=== PATIENT | male | born 1945 | race Caucasian/White ===

== ENCOUNTER 2021-12-19 12:44 | Outpatient (CLI) | payer MEDICARE | END 2021-12-19 12:45 | disposition home or self-care (01) | LOC: CSHLAB 12:44 | PROVIDERS: ATTEND Specialist | DX: Z20.822 Contact with and (suspected) exposure to COVID-19 (principal) | CPT/HCPCS: 87811 ==

== ENCOUNTER 2021-12-20 08:07 | Outpatient (CLI) | payer MEDICARE | END 2021-12-20 08:08 | disposition home or self-care (01) | LOC: CSHSPEC 08:07 | PROVIDERS: ATTEND Specialist | DX: M54.12 Radiculopathy, cervical region (principal); M54.16 Radiculopathy, lumbar region; Z95.0 Presence of cardiac pacemaker; M47.812 Spondylosis without myelopathy or radiculopathy, cervical region; M47.816 Spondylosis without myelopathy or radiculopathy, lumbar region | CPT/HCPCS: 71045; 72141; 72148 ==

== ENCOUNTER 2022-01-18 14:38 | Emergency (ER) | payer MEDICARE ==
[2022-01-18 15:29] LABS: ALT (SGPT) Less than 6 U/L (8-55); AST (SGOT) 16 U/L (5-34); Albumin 4.2 g/dL (3.4-4.8); Alkaline Phosphatase 82 U/L (40-110); Anion Gap 12 mmol/L (10-20); BUN (Urea Nitrogen) 37 mg/dL (8.4-25.7); Bilirubin, Total 0.5 mg/dL (0.2-1.2); Calc. Creatinine Clearance 0 mL/min (70-130); Calcium 9.1 mg/dL (7.8-10.44); Carbon Dioxide 24 mmol/L (23-31); Chloride 108 mmol/L (98-107); Estimated GFR 42; Globulin 2.6 g/dL (2.4-3.5); Glucose 92 mg/dL (83-110); Potassium 4.4 mmol/L (3.5-5.1); Protein, Total 6.8 g/dL (5.8-8.1); Sodium 140 mmol/L (136-145)
[2022-01-18 15:33] LABS: #Monocytes 0.5 10x3/uL (0.0-1.1); #Neutrophils 3.4 10x3/uL (1.5-8.4); %Basophils 0.2 % (0.0-2.0); %Eosinophils 0.6 % (0.0-6.0); %Lymphocytes 22.4 % (18.0-47.0); %Monocytes 8.9 % (0.0-10.0); %Neutrophils 67.5 % (40.0-75.0); Hemoglobin 10.9 g/dL (13.5-17.5); Mean Corpuscular HGB CONC 33.2 g/dL (32.0-36.0); Mean Corpuscular Hemoglobin 29.9 pg (27.0-33.0); Mean Corpuscular Volume 90.1 fl (81.2-95.1); Mean Platelet Volume 9.6 fl (7.4-10.4); Platelet Count 190 10x3/uL (150-450); Red Blood Cell (RBC) Count 3.64 10x6/uL (4.32-5.72); White Blood Cell (WBC) Count 5.1 10x3/uL (3.5-10.5)
[2022-01-18 18:52] LABS: Troponin I 0.028 ng/mL (< 0.028)
== END 2022-01-18 19:29 | disposition home or self-care (01) ==
LOC: CSHERS 14:38
DX: R07.89 Other chest pain (principal); E78.5 Hyperlipidemia, unspecified; I10 Essential (primary) hypertension
CPT/HCPCS: 36415; 71045; 80053; 84484; 85025; 93005

== ENCOUNTER 2022-02-01 12:24 | Inpatient (IN) | payer MEDICARE ==
[2022-02-01] MEDS ORDERED: Acetaminophen 500 MG TAB ONE (13:04)
[2022-02-01 13:10] LABS: #Monocytes 0.5 10x3/uL (0.0-1.1); #Neutrophils 2.9 10x3/uL (1.5-8.4); %Lymphocytes 13.2 % (18.0-47.0); %Monocytes 12.2 % (0.0-10.0); %Neutrophils 74.3 % (40.0-75.0); Hemoglobin 10.7 g/dL (13.5-17.5); Mean Corpuscular HGB CONC 33.2 g/dL (32.0-36.0); Mean Corpuscular Hemoglobin 30.7 pg (27.0-33.0); Mean Corpuscular Volume 92.5 fl (81.2-95.1); Mean Platelet Volume 9.5 fl (7.4-10.4); Platelet Count 124 10x3/uL (150-450); RBC Distribution Width 12.9 % (11.5-14.5); Red Blood Cell (RBC) Count 3.48 10x6/uL (4.32-5.72); White Blood Cell (WBC) Count 3.9 10x3/uL (3.5-10.5)
[2022-02-01 13:11] LABS: ALT (SGPT) Less than 6 U/L (8-55); AST (SGOT) 17 U/L (5-34); Alkaline Phosphatase 79 U/L (40-110); Anion Gap 14 mmol/L (10-20); BUN (Urea Nitrogen) 32 mg/dL (8.4-25.7); Bilirubin, Total 0.4 mg/dL (0.2-1.2); Calc. Creatinine Clearance 0 mL/min (70-130); Calcium 8.4 mg/dL (7.8-10.44); Carbon Dioxide 22 mmol/L (23-31); Chloride 107 mmol/L (98-107); Estimated GFR 39; Globulin 2.5 g/dL (2.4-3.5); Glucose 102 mg/dL (83-110); Potassium 4.5 mmol/L (3.5-5.1); Protein, Total 6.5 g/dL (5.8-8.1); Sodium 138 mmol/L (136-145)
[2022-02-01 13:31] LABS: CKMB 0.9 ng/mL (0-6.6)
[2022-02-01 13:56] LABS: SARS-CoV-2 NAA Rapid Test DETECTED (NotDetected)
[2022-02-01] MEDS ORDERED: Aspirin Chewable 81 MG TAB ONE (14:22)
[2022-02-01] MEDS ORDERED: Acetaminophen 650 MG Suppository PR PRN (16:45)
[2022-02-01 17:07] LABS: Troponin I 0.103 ng/mL (< 0.028)
[2022-02-01 17:52] LABS: CKMB 0.9 ng/mL (0-6.6)
[2022-02-01] MEDS ORDERED: Ventolin HFA Inhaler 60 PUFF INHALER INH PRN (19:37)
[2022-02-01 20:33] VITALS: BMI 27.3
[2022-02-01 21:45] LABS: Troponin I 0.089 ng/mL (< 0.028)
[2022-02-01] MEDS ORDERED: Acetaminophen/Codeine 30-300mg Tablet PO SCH (22:30)
[2022-02-01] MEDS ORDERED: Carbidopa/Levodopa 25-100 mg Tablet PO SCH (22:30)
[2022-02-01] MEDS ORDERED: Apixaban 5 MG TAB PO SCH (22:30)
[2022-02-01] MEDS: Cepastat Lozenges 1 LOZ PO PRN (22:50)
[2022-02-02] MEDS ORDERED: diphenhydrAMINE 50 MG CAP PO SCH (00:30)
[2022-02-02] MEDS: Benzonatate 100 MG CAP PO PRN (04:29)
[2022-02-02] MEDS: Cepastat Lozenges 1 LOZ PO PRN ×2 (04:29→08:56)
[2022-02-02 06:06] LABS: Anion Gap 15 mmol/L (10-20); BUN (Urea Nitrogen) 27 mg/dL (8.4-25.7); Calc. Creatinine Clearance 46 mL/min (70-130); Calcium 8.4 mg/dL (7.8-10.44); Carbon Dioxide 23 mmol/L (23-31); Chloride 102 mmol/L (98-107); Estimated GFR 45; Glucose 100 mg/dL (83-110); Potassium 4.5 mmol/L (3.5-5.1); Sodium 135 mmol/L (136-145)
[2022-02-02 06:29] LABS: #Monocytes 0.4 10x3/uL (0.0-1.1); #Neutrophils 2.7 10x3/uL (1.5-8.4); %Lymphocytes 17.5 % (18.0-47.0); %Monocytes 10.1 % (0.0-10.0); %Neutrophils 72.1 % (40.0-75.0); Hemoglobin 11.1 g/dL (13.5-17.5); Mean Corpuscular HGB CONC 33.3 g/dL (32.0-36.0); Mean Corpuscular Hemoglobin 30.4 pg (27.0-33.0); Mean Corpuscular Volume 91.2 fl (81.2-95.1); Mean Platelet Volume 9.9 fl (7.4-10.4); Platelet Count 117 10x3/uL (150-450); RBC Distribution Width 12.7 % (11.5-14.5); Red Blood Cell (RBC) Count 3.65 10x6/uL (4.32-5.72); White Blood Cell (WBC) Count 3.8 10x3/uL (3.5-10.5)
[2022-02-02] MEDS: Acetaminophen 325 MG TAB PO PRN ×2 (07:24→12:52)
[2022-02-02] MEDS: Guaifenesin DM 100-10/5 ML UDCUP PO PRN ×3 (07:24→22:08)
[2022-02-02] MEDS ORDERED: Amlodipine 5 MG TAB PO SCH (11:00)
[2022-02-02] MEDS ORDERED: Rosuvastatin 10 MG TAB PO SCH (11:00)
[2022-02-02] MEDS ORDERED: REMDESIVIR 200 MG in Sodium Chloride 0.9% 250 ML 210 ML IV SCH (11:45)
[2022-02-02 12:16] LABS: ALT (SGPT) 9 U/L (8-55); AST (SGOT) 24 U/L (5-34); Albumin 3.8 g/dL (3.4-4.8); Alkaline Phosphatase 71 U/L (40-110); Bilirubin, Direct 0.3 mg/dL (0.1-0.3); Bilirubin, Total 0.5 mg/dL (0.2-1.2); Protein, Total 6.5 g/dL (5.8-8.1)
[2022-02-02] MEDS: Dexamethasone 4 MG TAB PO SCH (12:49)
[2022-02-02] MEDS ORDERED: REMDESIVIR 200 MG, Admixture Fee 1 EACH in Sodium Chloride 0.9% 250 ML 210 ML IV SCH (13:00)
[2022-02-02] MEDS ORDERED: Dexamethasone 4 MG TAB PO SCH (13:00)
[2022-02-02] MEDS: Baclofen 10 MG TAB PO SCH (22:08)
[2022-02-02] MEDS: Apixaban 5 MG TAB PO SCH (22:08)
[2022-02-02] MEDS: Carbidopa/Levodopa 25-100 mg Tablet PO SCH (22:20)
[2022-02-03] MEDS: Acetaminophen 325 MG TAB PO PRN ×2 (03:15→15:58)
[2022-02-03 05:57] LABS: Anion Gap 16 mmol/L (10-20); BUN (Urea Nitrogen) 28 mg/dL (8.4-25.7); Calc. Creatinine Clearance 49 mL/min (70-130); Carbon Dioxide 23 mmol/L (23-31); Chloride 100 mmol/L (98-107); Estimated GFR 49; Glucose 134 mg/dL (83-110); Potassium 4.1 mmol/L (3.5-5.1); Sodium 135 mmol/L (136-145)
[2022-02-03 06:11] LABS: Hemoglobin 12.1 g/dL (13.5-17.5); Mean Corpuscular HGB CONC 33.8 g/dL (32.0-36.0); Mean Corpuscular Hemoglobin 30.3 pg (27.0-33.0); Mean Corpuscular Volume 89.5 fl (81.2-95.1); Platelet Count 131 10x3/uL (150-450); RBC Distribution Width 12.6 % (11.5-14.5); White Blood Cell (WBC) Count 4.8 10x3/uL (3.5-10.5)
[2022-02-03 06:15] LABS: MDiff Complete? YES
[2022-02-03 06:32] LABS: Band 29 % (5-11); Lymphocytes 9 % (21-51); Monocytes 6 % (0-10); Neutrophil 56 % (42-75)
[2022-02-03 06:37] LABS: Platelet Morphology Comment Appears Adequate; RBC Morphology Normal
[2022-02-03] MEDS ORDERED: Amlodipine 5 MG TAB PO SCH (09:00)
[2022-02-03] MEDS ORDERED: Losartan Potassium 50 MG TAB PO SCH (09:00)
[2022-02-03] MEDS: Carbidopa/Levodopa 25-100 mg Tablet PO SCH ×2 (10:23→22:44)
[2022-02-03] MEDS: Baclofen 10 MG TAB PO SCH ×2 (10:23→22:44)
[2022-02-03] MEDS: Rosuvastatin 10 MG TAB PO SCH (10:23)
[2022-02-03] MEDS: Apixaban 5 MG TAB PO SCH ×2 (10:23→22:44)
[2022-02-03] MEDS ORDERED: Polyethylene Glycol 3350 17 GM Packet PO SCH (10:30)
[2022-02-03] MEDS ORDERED: REMDESIVIR 100 MG in Sodium Chloride 0.9% 250 ML 230 ML IV SCH (11:45)
[2022-02-03] MEDS: REMDESIVIR 100 MG, Admixture Fee 1 EACH in Sodium Chloride 0.9% 250 ML 230 ML IV SCH (14:41)
[2022-02-03] MEDS: Guaifenesin DM 100-10/5 ML UDCUP PO PRN (15:58)
[2022-02-03] MEDS: Benzonatate 100 MG CAP PO PRN ×2 (15:59→22:43)
[2022-02-03] MEDS: Cepastat Lozenges 1 LOZ PO PRN ×2 (15:59→22:44)
[2022-02-03] MEDS: Acetaminophen/Codeine 30-300mg Tablet PO PRN (22:13)
[2022-02-04] MEDS: Guaifenesin DM 100-10/5 ML UDCUP PO PRN (05:45)
[2022-02-04] MEDS: Acetaminophen 325 MG TAB PO PRN (05:46)
[2022-02-04 05:58] LABS: Hemoglobin 11.9 g/dL (13.5-17.5); Mean Corpuscular HGB CONC 34.2 g/dL (32.0-36.0); Mean Corpuscular Hemoglobin 30.1 pg (27.0-33.0); Mean Corpuscular Volume 87.9 fl (81.2-95.1); Mean Platelet Volume 9.6 fl (7.4-10.4); Platelet Count 116 10x3/uL (150-450); RBC Distribution Width 12.7 % (11.5-14.5); Red Blood Cell (RBC) Count 3.96 10x6/uL (4.32-5.72); White Blood Cell (WBC) Count 5.1 10x3/uL (3.5-10.5)
[2022-02-04 06:07] LABS: ALT (SGPT) 8 U/L (8-55); AST (SGOT) 45 U/L (5-34); Albumin 3.7 g/dL (3.4-4.8); Alkaline Phosphatase 63 U/L (40-110); Anion Gap 12 mmol/L (10-20); BUN (Urea Nitrogen) 42 mg/dL (8.4-25.7); Bilirubin, Total 0.6 mg/dL (0.2-1.2); Calc. Creatinine Clearance 42 mL/min (70-130); Calcium 9.1 mg/dL (7.8-10.44); Carbon Dioxide 25 mmol/L (23-31); Chloride 101 mmol/L (98-107); Estimated GFR 40; Glucose 152 mg/dL (83-110); MDiff Complete? YES; Potassium 4.3 mmol/L (3.5-5.1); Protein, Total 6.7 g/dL (5.8-8.1); Sodium 134 mmol/L (136-145)
[2022-02-04 06:54] LABS: Band 9 % (5-11); Eosinophils 1 % (0-10); Lymphocytes 11 % (21-51); Monocytes 5 % (0-10); Neutrophil 74 % (42-75)
[2022-02-04] MEDS: Polyethylene Glycol 3350 17 GM Packet PO SCH (10:08)
[2022-02-04] MEDS: Apixaban 5 MG TAB PO SCH ×2 (10:08→20:47)
[2022-02-04] MEDS: Dexamethasone 4 MG TAB PO SCH (10:09)
[2022-02-04] MEDS: Carbidopa/Levodopa 25-100 mg Tablet PO SCH ×2 (10:09→20:46)
[2022-02-04] MEDS: Baclofen 10 MG TAB PO SCH ×2 (10:09→20:47)
[2022-02-04] MEDS: Rosuvastatin 10 MG TAB PO SCH (10:09)
[2022-02-04] MEDS: REMDESIVIR 100 MG, Admixture Fee 1 EACH in Sodium Chloride 0.9% 250 ML 230 ML IV SCH (12:52)
[2022-02-04] MEDS: Acetaminophen/Codeine 30-300mg Tablet PO PRN (12:59)
[2022-02-04] MEDS: Losartan Potassium 50 MG TAB PO SCH (20:46)
[2022-02-04] MEDS: traMADol HCl 50 MG TAB PO PRN (20:47)
[2022-02-05 05:51] LABS: #Eosinphils 0.2 10x3/uL (0.0-0.5); #Monocytes 0.5 10x3/uL (0.0-1.1); #Neutrophils 5.4 10x3/uL (1.5-8.4); %Eosinophils 2.6 % (0.0-6.0); %Lymphocytes 7.6 % (18.0-47.0); %Monocytes 7.2 % (0.0-10.0); %Neutrophils 82.4 % (40.0-75.0); Hemoglobin 11.7 g/dL (13.5-17.5); Mean Corpuscular HGB CONC 33.5 g/dL (32.0-36.0); Mean Corpuscular Hemoglobin 30.3 pg (27.0-33.0); Mean Corpuscular Volume 90.4 fl (81.2-95.1); Platelet Count 131 10x3/uL (150-450); RBC Distribution Width 12.7 % (11.5-14.5); Red Blood Cell (RBC) Count 3.86 10x6/uL (4.32-5.72); White Blood Cell (WBC) Count 6.5 10x3/uL (3.5-10.5)
[2022-02-05 06:00] LABS: Anion Gap 16 mmol/L (10-20); BUN (Urea Nitrogen) 46 mg/dL (8.4-25.7); Calc. Creatinine Clearance 45 mL/min (70-130); Calcium 9.1 mg/dL (7.8-10.44); Carbon Dioxide 25 mmol/L (23-31); Chloride 101 mmol/L (98-107); Estimated GFR 44; Glucose 145 mg/dL (83-110); Magnesium 2.4 mg/dL (1.6-2.6); Potassium 4.5 mmol/L (3.5-5.1); Sodium 137 mmol/L (136-145)
[2022-02-05] MEDS: Baclofen 10 MG TAB PO SCH ×2 (09:39→21:00)
[2022-02-05] MEDS: Dexamethasone 4 MG TAB PO SCH (09:39)
[2022-02-05] MEDS: Apixaban 5 MG TAB PO SCH ×2 (09:40→21:00)
[2022-02-05] MEDS: Rosuvastatin 10 MG TAB PO SCH (09:41)
[2022-02-05] MEDS: Carbidopa/Levodopa 25-100 mg Tablet PO SCH ×2 (09:56→21:00)
[2022-02-05] MEDS: Polyethylene Glycol 3350 17 GM Packet PO SCH (09:56)
[2022-02-05] MEDS ORDERED: Sodium Chloride 0.9% 1,000 ML IV SCH (10:00)
[2022-02-05] MEDS: REMDESIVIR 100 MG, Admixture Fee 1 EACH in Sodium Chloride 0.9% 250 ML 230 ML IV SCH (13:36)
[2022-02-05] MEDS: Acetaminophen 325 MG TAB PO PRN (17:51)
[2022-02-05] MEDS: traMADol HCl 50 MG TAB PO PRN (20:59)
[2022-02-05] MEDS: Losartan Potassium 50 MG TAB PO SCH (21:00)
[2022-02-06 06:19] LABS: #Monocytes 0.4 10x3/uL (0.0-1.1); %Lymphocytes 4.7 % (18.0-47.0); %Monocytes 5.5 % (0.0-10.0); %Neutrophils 89.1 % (40.0-75.0); Hemoglobin 11.8 g/dL (13.5-17.5); Mean Corpuscular HGB CONC 34.3 g/dL (32.0-36.0); Mean Corpuscular Hemoglobin 30.6 pg (27.0-33.0); Mean Corpuscular Volume 89.4 fl (81.2-95.1); Platelet Count 142 10x3/uL (150-450); RBC Distribution Width 12.6 % (11.5-14.5); Red Blood Cell (RBC) Count 3.85 10x6/uL (4.32-5.72); White Blood Cell (WBC) Count 6.7 10x3/uL (3.5-10.5)
[2022-02-06 06:35] LABS: ALT (SGPT) 10 U/L (8-55); AST (SGOT) 47 U/L (5-34); Albumin 3.6 g/dL (3.4-4.8); Alkaline Phosphatase 60 U/L (40-110); Anion Gap 14 mmol/L (10-20); BUN (Urea Nitrogen) 53 mg/dL (8.4-25.7); Calc. Creatinine Clearance 40 mL/min (70-130); Calcium 8.8 mg/dL (7.8-10.44); Carbon Dioxide 25 mmol/L (23-31); Chloride 102 mmol/L (98-107); Estimated GFR 38; Globulin 2.9 g/dL (2.4-3.5); Glucose 145 mg/dL (83-110); Magnesium 2.5 mg/dL (1.6-2.6); Potassium 4.4 mmol/L (3.5-5.1); Protein, Total 6.5 g/dL (5.8-8.1); Sodium 137 mmol/L (136-145)
[2022-02-06] MEDS: Acetaminophen/Codeine 30-300mg Tablet PO PRN (07:30)
[2022-02-06] MEDS: Sodium Chloride 0.9% 1,000 ML IV SCH (09:19)
[2022-02-06] MEDS: Dexamethasone 4 MG TAB PO SCH (09:20)
[2022-02-06] MEDS: Rosuvastatin 10 MG TAB PO SCH (09:20)
[2022-02-06] MEDS: Carbidopa/Levodopa 25-100 mg Tablet PO SCH ×2 (09:20→20:38)
[2022-02-06] MEDS: Apixaban 5 MG TAB PO SCH ×2 (09:20→20:38)
[2022-02-06] MEDS: Baclofen 10 MG TAB PO SCH ×2 (09:20→20:37)
[2022-02-06] MEDS: Polyethylene Glycol 3350 17 GM Packet PO SCH (09:21)
[2022-02-06] MEDS: Acetaminophen 325 MG TAB PO PRN ×2 (12:28→20:49)
[2022-02-06] MEDS: Lidocaine 5% Patch TD SCH (12:28)
[2022-02-06] MEDS: REMDESIVIR 100 MG, Admixture Fee 1 EACH in Sodium Chloride 0.9% 250 ML 230 ML IV SCH (12:28)
[2022-02-06 18:30] LABS: Bilirubin Neg (Negative); Blood, Urine 150 (Negative); Clarity Clear (Clear); Glucose, Urine (Dipstick) Normal (Negative); Ketone, Urine Negative (Negative); Leukocyte Negative (Negative); Nitrite Negative (Negative); Protein, Urine (Dipstick) 30 mg/dl (Neg-Trace); Specific Gravity, Urine 1.015 (1.002-1.036)
[2022-02-06 18:48] LABS: Urine Culture Reflex No No
[2022-02-06 18:50] LABS: Bacteria/HPF Rare-Few HPF (None Seen); RBC/HPF 0-3 HPF (0-3); Squamous Epithelial 0-3 HPF (0-3); WBC/HPF 0-3 HPF (0-3)
[2022-02-06] MEDS: Losartan Potassium 50 MG TAB PO SCH (20:37)
[2022-02-06] MEDS: Benzonatate 100 MG CAP PO PRN (20:50)
[2022-02-07] MEDS ORDERED: Transdermal Patch Removal TOP SCH (01:00)
[2022-02-07] MEDS: Transdermal Patch Removal TOP SCH (01:18)
[2022-02-07] MEDS: Benzonatate 100 MG CAP PO PRN ×2 (02:06→20:45)
[2022-02-07] MEDS: Sodium Chloride 0.9% 1,000 ML IV SCH ×2 (02:06→13:08)
[2022-02-07] MEDS: Acetaminophen 325 MG TAB PO PRN ×3 (02:06→20:41)
[2022-02-07 04:55] LABS: Mean Corpuscular HGB CONC 33.4 g/dL (32.0-36.0); Mean Corpuscular Hemoglobin 30.2 pg (27.0-33.0); Mean Corpuscular Volume 90.4 fl (81.2-95.1); Mean Platelet Volume 10.3 fl (7.4-10.4); Platelet Count 167 10x3/uL (150-450); RBC Distribution Width 12.4 % (11.5-14.5); Red Blood Cell (RBC) Count 3.97 10x6/uL (4.32-5.72); White Blood Cell (WBC) Count 6.9 10x3/uL (3.5-10.5)
[2022-02-07 05:13] LABS: ALT (SGPT) 12 U/L (8-55); AST (SGOT) 49 U/L (5-34); Albumin 3.6 g/dL (3.4-4.8); Alkaline Phosphatase 60 U/L (40-110); Anion Gap 17 mmol/L (10-20); BUN (Urea Nitrogen) 44 mg/dL (8.4-25.7); Bilirubin, Total 0.9 mg/dL (0.2-1.2); CK (CPK) 729 U/L (30-200); Calc. Creatinine Clearance 46 mL/min (70-130); Calcium 8.7 mg/dL (7.8-10.44); Carbon Dioxide 21 mmol/L (23-31); Chloride 106 mmol/L (98-107); Estimated GFR 45; Globulin 3.1 g/dL (2.4-3.5); Glucose 159 mg/dL (83-110); Magnesium 2.6 mg/dL (1.6-2.6); Potassium 4.6 mmol/L (3.5-5.1); Protein, Total 6.7 g/dL (5.8-8.1); Sodium 139 mmol/L (136-145)
[2022-02-07 06:55] LABS: MDiff Complete? YES; Platelet Morphology Comment Appears Adequate
[2022-02-07 07:03] LABS: Lymphocytes 8 % (21-51); Monocytes 5 % (0-10); Neutrophil 87 % (42-75)
[2022-02-07] MEDS ORDERED: Pantoprazole 40 MG GRANULES PACKET PO SCH (09:00)
[2022-02-07] MEDS: Dexamethasone 4 MG TAB PO SCH (09:07)
[2022-02-07] MEDS: Apixaban 5 MG TAB PO SCH ×2 (09:28→20:40)
[2022-02-07] MEDS: Carbidopa/Levodopa 25-100 mg Tablet PO SCH ×2 (09:28→20:40)
[2022-02-07] MEDS: Baclofen 10 MG TAB PO SCH ×2 (09:28→20:41)
[2022-02-07] MEDS: Polyethylene Glycol 3350 17 GM Packet PO SCH (09:28)
[2022-02-07] MEDS: Rosuvastatin 10 MG TAB PO SCH (09:28)
[2022-02-07] MEDS: Lansoprazole 3 MG/ML ORAL SUSPENSION PO SCH (09:36)
[2022-02-07 12:37] LABS: Hemoglobin 12.3 g/dL (13.5-17.5); Mean Corpuscular HGB CONC 34.2 g/dL (32.0-36.0); Mean Corpuscular Hemoglobin 30.8 pg (27.0-33.0); Mean Corpuscular Volume 90.2 fl (81.2-95.1); Mean Platelet Volume 10.8 fl (7.4-10.4); Platelet Count 164 10x3/uL (150-450); RBC Distribution Width 12.4 % (11.5-14.5); Red Blood Cell (RBC) Count 3.99 10x6/uL (4.32-5.72); White Blood Cell (WBC) Count 8.3 10x3/uL (3.5-10.5)
[2022-02-07 13:04] LABS: INR-International Normal Ratio 1.2; PTT 35.9 sec (22.0-33.0); Prothrombin Time 13.2 sec (9.5-12.1)
[2022-02-07 13:17] LABS: CKMB 7.6 ng/mL (0-6.6)
[2022-02-07 13:33] LABS: Anion Gap 17 mmol/L (10-20); BUN (Urea Nitrogen) 43 mg/dL (8.4-25.7); Calc. Creatinine Clearance 43 mL/min (70-130); Calcium 8.7 mg/dL (7.8-10.44); Carbon Dioxide 18 mmol/L (23-31); Chloride 106 mmol/L (98-107); Estimated GFR 42; Glucose 176 mg/dL (83-110); Magnesium 2.5 mg/dL (1.6-2.6); Potassium 4.3 mmol/L (3.5-5.1); Sodium 137 mmol/L (136-145)
[2022-02-07] MEDS: Lidocaine 5% Patch TD SCH (13:40)
[2022-02-07 18:14] LABS: CKMB 6.5 ng/mL (0-6.6)
[2022-02-07] MEDS: Losartan Potassium 50 MG TAB PO SCH ×2 (20:40→21:37)
[2022-02-07] MEDS: Guaifenesin DM 100-10/5 ML UDCUP PO PRN (22:14)
[2022-02-08] MEDS: Transdermal Patch Removal TOP SCH (01:04)
[2022-02-08] MEDS: Acetaminophen 325 MG TAB PO PRN (03:44)
[2022-02-08] MEDS: Benzonatate 100 MG CAP PO PRN (03:45)
[2022-02-08 05:47] LABS: Hemoglobin 11.5 g/dL (13.5-17.5); Mean Corpuscular HGB CONC 33.7 g/dL (32.0-36.0); Mean Corpuscular Hemoglobin 29.8 pg (27.0-33.0); Mean Corpuscular Volume 88.3 fl (81.2-95.1); Mean Platelet Volume 9.8 fl (7.4-10.4); Platelet Count 163 10x3/uL (150-450); RBC Distribution Width 12.3 % (11.5-14.5); Red Blood Cell (RBC) Count 3.86 10x6/uL (4.32-5.72)
[2022-02-08 06:00] LABS: ALT (SGPT) 17 U/L (8-55); AST (SGOT) 38 U/L (5-34); Albumin 3.2 g/dL (3.4-4.8); Alkaline Phosphatase 51 U/L (40-110); Anion Gap 11 mmol/L (10-20); BUN (Urea Nitrogen) 34 mg/dL (8.4-25.7); Bilirubin, Total 0.9 mg/dL (0.2-1.2); Calc. Creatinine Clearance 55 mL/min (70-130); Calcium 8.1 mg/dL (7.8-10.44); Carbon Dioxide 23 mmol/L (23-31); Chloride 107 mmol/L (98-107); Estimated GFR 56; Globulin 2.3 g/dL (2.4-3.5); Glucose 124 mg/dL (83-110); Magnesium 2.3 mg/dL (1.6-2.6); Protein, Total 5.5 g/dL (5.8-8.1); Sodium 137 mmol/L (136-145)
[2022-02-08] MEDS: Guaifenesin DM 100-10/5 ML UDCUP PO PRN (06:54)
[2022-02-08 08:13] LABS: MDiff Complete? YES
[2022-02-08 08:16] LABS: Band 2 % (5-11); Lymphocytes 8 % (21-51); Monocytes 14 % (0-10); Neutrophil 76 % (42-75)
[2022-02-08 08:17] LABS: Platelet Morphology Comment Appears Adequate
[2022-02-08 08:18] LABS: RBC Morphology Normal
[2022-02-08 08:21] LABS: Syphilis Antibody Nonreactive (Nonreactive); Syphilis Antibody Index 0.04 S/CO (<1.00 Non-Reactive)
[2022-02-08] MEDS: Apixaban 5 MG TAB PO SCH ×2 (09:57→21:01)
[2022-02-08] MEDS: Rosuvastatin 10 MG TAB PO SCH (09:57)
[2022-02-08] MEDS: Carbidopa/Levodopa 25-100 mg Tablet PO SCH ×2 (09:57→21:00)
[2022-02-08] MEDS: Baclofen 10 MG TAB PO SCH ×2 (09:57→21:01)
[2022-02-08] MEDS: Polyethylene Glycol 3350 17 GM Packet PO SCH (09:58)
[2022-02-08] MEDS: Lansoprazole 3 MG/ML ORAL SUSPENSION PO SCH (10:19)
[2022-02-08] MEDS: Sodium Chloride 0.9% 1,000 ML IV SCH ×2 (17:52→17:53)
[2022-02-08] MEDS: Lidocaine 5% Patch TD SCH (17:52)
[2022-02-08] MEDS: Losartan Potassium 50 MG TAB PO SCH (21:01)
[2022-02-09] MEDS: Transdermal Patch Removal TOP SCH (01:22)
[2022-02-09] MEDS: Acetaminophen 325 MG TAB PO PRN (01:22)
[2022-02-09 05:14] LABS: ALT (SGPT) 9 U/L (8-55); AST (SGOT) 34 U/L (5-34); Albumin 3.1 g/dL (3.4-4.8); Alkaline Phosphatase 60 U/L (40-110); Anion Gap 11 mmol/L (10-20); BUN (Urea Nitrogen) 33 mg/dL (8.4-25.7); Bilirubin, Total 0.7 mg/dL (0.2-1.2); Calc. Creatinine Clearance 48 mL/min (70-130); Calcium 8.1 mg/dL (7.8-10.44); Carbon Dioxide 25 mmol/L (23-31); Chloride 106 mmol/L (98-107); Estimated GFR 48; Globulin 2.3 g/dL (2.4-3.5); Glucose 107 mg/dL (83-110); Magnesium 2.4 mg/dL (1.6-2.6); Potassium 4.2 mmol/L (3.5-5.1); Protein, Total 5.4 g/dL (5.8-8.1); Sodium 138 mmol/L (136-145)
[2022-02-09 05:19] LABS: #Monocytes 0.5 10x3/uL (0.0-1.1); #Neutrophils 4.9 10x3/uL (1.5-8.4); %Basophils 0.2 % (0.0-2.0); %Eosinophils 0.2 % (0.0-6.0); %Monocytes 7.5 % (0.0-10.0); %Neutrophils 77.5 % (40.0-75.0); Hemoglobin 11.6 g/dL (13.5-17.5); Mean Corpuscular HGB CONC 33.9 g/dL (32.0-36.0); Mean Corpuscular Hemoglobin 30.1 pg (27.0-33.0); Mean Corpuscular Volume 88.8 fl (81.2-95.1); Platelet Count 182 10x3/uL (150-450); RBC Distribution Width 12.5 % (11.5-14.5); Red Blood Cell (RBC) Count 3.85 10x6/uL (4.32-5.72); White Blood Cell (WBC) Count 6.3 10x3/uL (3.5-10.5)
[2022-02-09 05:24] LABS: HIV (1/2) Antibody/Antigen Non-Reactive (NonReactive); HIV 1/2 INDEX 0.08 S/CO (<1.00)
[2022-02-09] MEDS: Apixaban 5 MG TAB PO SCH ×2 (09:18→22:28)
[2022-02-09] MEDS: Polyethylene Glycol 3350 17 GM Packet PO SCH (09:18)
[2022-02-09] MEDS: Baclofen 10 MG TAB PO SCH ×2 (09:18→22:28)
[2022-02-09] MEDS: Lansoprazole 3 MG/ML ORAL SUSPENSION PO SCH (09:20)
[2022-02-09] MEDS: Rosuvastatin 10 MG TAB PO SCH (09:20)
[2022-02-09] MEDS: Carbidopa/Levodopa 25-100 mg Tablet PO SCH ×2 (09:22→22:28)
[2022-02-09] MEDS: Sodium Chloride 0.9% 1,000 ML IV SCH (09:23)
[2022-02-09] MEDS: Lidocaine 5% Patch TD SCH (15:54)
[2022-02-09] MEDS: Losartan Potassium 50 MG TAB PO SCH (22:27)
[2022-02-09] MEDS: Guaifenesin DM 100-10/5 ML UDCUP PO PRN (22:31)
[2022-02-10] MEDS: Transdermal Patch Removal TOP SCH (02:42)
[2022-02-10 07:22] LABS: #Monocytes 0.5 10x3/uL (0.0-1.1); %Basophils 0.1 % (0.0-2.0); %Eosinophils 0.3 % (0.0-6.0); %Lymphocytes 12.6 % (18.0-47.0); %Neutrophils 79.7 % (40.0-75.0); Hemoglobin 11.1 g/dL (13.5-17.5); Mean Corpuscular HGB CONC 33.9 g/dL (32.0-36.0); Mean Corpuscular Hemoglobin 30.2 pg (27.0-33.0); Mean Corpuscular Volume 89.1 fl (81.2-95.1); Mean Platelet Volume 10.3 fl (7.4-10.4); Platelet Count 194 10x3/uL (150-450); RBC Distribution Width 12.6 % (11.5-14.5); Red Blood Cell (RBC) Count 3.67 10x6/uL (4.32-5.72); White Blood Cell (WBC) Count 7.5 10x3/uL (3.5-10.5)
[2022-02-10 07:34] LABS: ALT (SGPT) 15 U/L (8-55); AST (SGOT) 24 U/L (5-34); Albumin 2.9 g/dL (3.4-4.8); Alkaline Phosphatase 59 U/L (40-110); Anion Gap 9 mmol/L (10-20); BUN (Urea Nitrogen) 38 mg/dL (8.4-25.7); Bilirubin, Total 0.8 mg/dL (0.2-1.2); Calc. Creatinine Clearance 48 mL/min (70-130); Calcium 8.2 mg/dL (7.8-10.44); Carbon Dioxide 27 mmol/L (23-31); Chloride 105 mmol/L (98-107); Estimated GFR 48; Globulin 2.4 g/dL (2.4-3.5); Glucose 127 mg/dL (83-110); Magnesium 2.4 mg/dL (1.6-2.6); Potassium 4.1 mmol/L (3.5-5.1); Protein, Total 5.3 g/dL (5.8-8.1); Sodium 137 mmol/L (136-145)
[2022-02-10] MEDS: Rosuvastatin 10 MG TAB PO SCH (10:22)
[2022-02-10] MEDS: Baclofen 10 MG TAB PO SCH ×2 (10:22→18:27)
[2022-02-10] MEDS: Apixaban 5 MG TAB PO SCH ×2 (10:23→18:27)
[2022-02-10] MEDS: Carbidopa/Levodopa 25-100 mg Tablet PO SCH ×2 (10:23→18:27)
[2022-02-10] MEDS: Polyethylene Glycol 3350 17 GM Packet PO SCH (10:23)
[2022-02-10] MEDS: Lansoprazole 3 MG/ML ORAL SUSPENSION PO SCH (10:28)
[2022-02-10] MEDS: Lidocaine 5% Patch TD SCH (14:41)
[2022-02-11] MEDS: Transdermal Patch Removal TOP SCH (02:00)
[2022-02-11 06:24] LABS: #Eosinphils 0.1 10x3/uL (0.0-0.5); #Monocytes 0.6 10x3/uL (0.0-1.1); #Neutrophils 7.5 10x3/uL (1.5-8.4); %Basophils 0.1 % (0.0-2.0); %Eosinophils 0.7 % (0.0-6.0); %Lymphocytes 12.2 % (18.0-47.0); %Monocytes 6.3 % (0.0-10.0); %Neutrophils 79.8 % (40.0-75.0); Hemoglobin 11.8 g/dL (13.5-17.5); Mean Corpuscular HGB CONC 34.3 g/dL (32.0-36.0); Mean Corpuscular Hemoglobin 30.4 pg (27.0-33.0); Mean Corpuscular Volume 88.7 fl (81.2-95.1); Mean Platelet Volume 10.1 fl (7.4-10.4); Platelet Count 200 10x3/uL (150-450); RBC Distribution Width 12.8 % (11.5-14.5); Red Blood Cell (RBC) Count 3.88 10x6/uL (4.32-5.72); White Blood Cell (WBC) Count 9.4 10x3/uL (3.5-10.5)
[2022-02-11 06:34] LABS: ALT (SGPT) 18 U/L (8-55); AST (SGOT) 21 U/L (5-34); Albumin 2.9 g/dL (3.4-4.8); Alkaline Phosphatase 60 U/L (40-110); Anion Gap 12 mmol/L (10-20); BUN (Urea Nitrogen) 38 mg/dL (8.4-25.7); Bilirubin, Total 0.7 mg/dL (0.2-1.2); Calc. Creatinine Clearance 51 mL/min (70-130); Calcium 8.2 mg/dL (7.8-10.44); Carbon Dioxide 24 mmol/L (23-31); Chloride 107 mmol/L (98-107); Estimated GFR 52; Globulin 2.5 g/dL (2.4-3.5); Glucose 129 mg/dL (83-110); Magnesium 2.4 mg/dL (1.6-2.6); Potassium 4.2 mmol/L (3.5-5.1); Protein, Total 5.4 g/dL (5.8-8.1); Sodium 139 mmol/L (136-145)
[2022-02-11] MEDS: Lansoprazole 3 MG/ML ORAL SUSPENSION PO SCH (09:45)
[2022-02-11] MEDS: Polyethylene Glycol 3350 17 GM Packet PO SCH (09:46)
[2022-02-11] MEDS: Apixaban 5 MG TAB PO SCH ×2 (09:47→17:30)
[2022-02-11] MEDS: Rosuvastatin 10 MG TAB PO SCH (09:47)
[2022-02-11] MEDS: Baclofen 10 MG TAB PO SCH ×2 (09:48→17:30)
[2022-02-11] MEDS: Carbidopa/Levodopa 25-100 mg Tablet PO SCH ×2 (09:48→17:30)
[2022-02-11] MEDS: Lidocaine 5% Patch TD SCH (13:41)
[2022-02-11] MEDS ORDERED: Thiamine 100 MG TAB PO SCH (14:00)
[2022-02-12] MEDS: Transdermal Patch Removal TOP SCH (01:50)
[2022-02-12] MEDS: Guaifenesin DM 100-10/5 ML UDCUP PO PRN (01:51)
[2022-02-12] MEDS: Benzonatate 100 MG CAP PO PRN ×2 (01:51→17:35)
[2022-02-12 05:36] LABS: ALT (SGPT) 10 U/L (8-55); AST (SGOT) 16 U/L (5-34); Albumin 2.8 g/dL (3.4-4.8); Alkaline Phosphatase 57 U/L (40-110); Anion Gap 9 mmol/L (10-20); BUN (Urea Nitrogen) 33 mg/dL (8.4-25.7); Bilirubin, Total 0.6 mg/dL (0.2-1.2); Calc. Creatinine Clearance 53 mL/min (70-130); Calcium 8.1 mg/dL (7.8-10.44); Carbon Dioxide 27 mmol/L (23-31); Chloride 105 mmol/L (98-107); Estimated GFR 54; Globulin 2.4 g/dL (2.4-3.5); Glucose 142 mg/dL (83-110); Potassium 4.1 mmol/L (3.5-5.1); Protein, Total 5.2 g/dL (5.8-8.1); Sodium 137 mmol/L (136-145)
[2022-02-12 05:40] LABS: #Monocytes 0.6 10x3/uL (0.0-1.1); #Neutrophils 7.4 10x3/uL (1.5-8.4); %Basophils 0.1 % (0.0-2.0); %Eosinophils 0.4 % (0.0-6.0); %Lymphocytes 10.9 % (18.0-47.0); %Monocytes 6.4 % (0.0-10.0); %Neutrophils 81.5 % (40.0-75.0); Hemoglobin 10.2 g/dL (13.5-17.5); Mean Corpuscular HGB CONC 33.6 g/dL (32.0-36.0); Mean Corpuscular Hemoglobin 30.3 pg (27.0-33.0); Mean Corpuscular Volume 90.2 fl (81.2-95.1); Mean Platelet Volume 9.8 fl (7.4-10.4); Platelet Count 209 10x3/uL (150-450); RBC Distribution Width 12.9 % (11.5-14.5); Red Blood Cell (RBC) Count 3.37 10x6/uL (4.32-5.72); White Blood Cell (WBC) Count 9.1 10x3/uL (3.5-10.5)
[2022-02-12] MEDS: Zinc Sulfate 220 MG CAP PO SCH (09:25)
[2022-02-12] MEDS: Cholecalciferol 1,000 UNITS (25 MCG) TAB PO SCH (09:25)
[2022-02-12] MEDS: Baclofen 10 MG TAB PO SCH ×2 (09:25→17:35)
[2022-02-12] MEDS: Ascorbic Acid 500 mg Chewable Tablet PO SCH (09:25)
[2022-02-12] MEDS: Thiamine 100 MG TAB PO SCH (09:25)
[2022-02-12] MEDS: Apixaban 5 MG TAB PO SCH ×2 (09:25→17:35)
[2022-02-12] MEDS: Carbidopa/Levodopa 25-100 mg Tablet PO SCH ×2 (09:25→17:35)
[2022-02-12] MEDS: Polyethylene Glycol 3350 17 GM Packet PO SCH ×2 (09:25)
[2022-02-12] MEDS: Rosuvastatin 10 MG TAB PO SCH (09:25)
[2022-02-12] MEDS: Lansoprazole 3 MG/ML ORAL SUSPENSION PO SCH (09:27)
[2022-02-12] MEDS: Lidocaine 5% Patch TD SCH (15:03)
[2022-02-13] MEDS: Transdermal Patch Removal TOP SCH (01:14)
[2022-02-13] MEDS: Polyethylene Glycol 3350 17 GM Packet PO SCH (09:27)
[2022-02-13] MEDS: Apixaban 5 MG TAB PO SCH ×2 (09:27→18:05)
[2022-02-13] MEDS: Rosuvastatin 10 MG TAB PO SCH (09:27)
[2022-02-13] MEDS: Ascorbic Acid 500 mg Chewable Tablet PO SCH (09:28)
[2022-02-13] MEDS: Thiamine 100 MG TAB PO SCH (09:28)
[2022-02-13] MEDS: Cholecalciferol 1,000 UNITS (25 MCG) TAB PO SCH (09:28)
[2022-02-13] MEDS: Carbidopa/Levodopa 25-100 mg Tablet PO SCH ×2 (09:28→18:06)
[2022-02-13] MEDS: Baclofen 10 MG TAB PO SCH ×2 (09:28→18:05)
[2022-02-13] MEDS: Lansoprazole 3 MG/ML ORAL SUSPENSION PO SCH (10:40)
[2022-02-13] MEDS: Guaifenesin DM 100-10/5 ML UDCUP PO PRN ×2 (10:43→18:33)
[2022-02-13] MEDS: Zinc Sulfate 220 MG CAP PO SCH (12:29)
[2022-02-13] MEDS: Lidocaine 5% Patch TD SCH (14:16)
[2022-02-13 16:40] VITALS: BP 140/64; TEMP 97.6
== END 2022-02-13 19:45 | DRG 177 ==
LOC: CSHERS 12:24 → CSHTELE 19:34
PROVIDERS: ADMIT Internal Medicine Geriatric Medicine; ATTEND Internal Medicine
PROC: 8E0ZXY6 Isolation (ICD-10-PCS; 2022-02-01)
PROC: XW033E5 Introduction of Remdesivir Anti-infective into Peripheral Vein, Percutaneous Approach, New Technology Group 5 (ICD-10-PCS; principal; 2022-02-02)
PROC: 3E0DX3Z Introduction of Anti-inflammatory into Mouth and Pharynx, External Approach (ICD-10-PCS; 2022-02-02)
DX: U07.1 COVID-19 (principal); G93.41 Metabolic encephalopathy; J12.82 Pneumonia due to coronavirus disease 2019; J96.01 Acute respiratory failure with hypoxia; I24.8 Other forms of acute ischemic heart disease; I48.11 Longstanding persistent atrial fibrillation; G20 Parkinson's disease; K59.00 Constipation, unspecified; I25.10 Atherosclerotic heart disease of native coronary artery without angina pectoris; E78.5 Hyperlipidemia, unspecified; I12.9 Hypertensive chronic kidney disease with stage 1 through stage 4 chronic kidney disease, or unspecified chronic kidney disease; N18.9 Chronic kidney disease, unspecified; I95.1 Orthostatic hypotension; Z79.899 Other long term (current) drug therapy; Z79.01 Long term (current) use of anticoagulants; Z95.0 Presence of cardiac pacemaker
CPT/HCPCS: 36415; 70450; 70551; 71045; 71275; 76770; 76775; 80048; 80053; 80076; 81001; 82550; 82553; 82607; 83605; 83735; 84145; 84443; 84484; 85025; 85610; 85730; 86140; 86780; 87040; 87389; 93005; 93010; 93306; 93880; 94760; 95816; 95819; 95957; J0248; J7050; J8540

== ENCOUNTER 2022-03-18 23:43 | Emergency (ER) | payer MEDICARE ==
[2022-03-19] MEDS ORDERED: Oxymetazoline HCl 0.05% ( 15 ML ) ONE (00:06)
== END 2022-03-19 01:10 | disposition home or self-care (01) ==
LOC: CSHERS 23:43
DX: R04.0 Epistaxis (principal); I10 Essential (primary) hypertension; E78.5 Hyperlipidemia, unspecified; I25.10 Atherosclerotic heart disease of native coronary artery without angina pectoris; I48.91 Unspecified atrial fibrillation; Z79.02 Long term (current) use of antithrombotics/antiplatelets; Z79.01 Long term (current) use of anticoagulants
CPT/HCPCS: 93005; 99283

== ENCOUNTER 2022-03-28 18:25 | Emergency (ER) | payer MEDICARE | END 2022-03-28 20:21 | disposition home or self-care (01) | LOC: CSHERS 18:25 | DX: R04.0 Epistaxis (principal); I48.91 Unspecified atrial fibrillation; E78.5 Hyperlipidemia, unspecified; I10 Essential (primary) hypertension; Z79.899 Other long term (current) drug therapy; Z79.01 Long term (current) use of anticoagulants | CPT/HCPCS: 99283 ==

== ENCOUNTER 2022-06-23 11:25 | Emergency (ER) | payer MEDICARE ==
[2022-06-23] MEDS ORDERED: Ondansetron PF 4 MG/2 ML Vial ONE (12:15)
[2022-06-23] MEDS ORDERED: Morphine 4 MG/ML VIAL ONE ×2 (12:15→14:41)
[2022-06-23 12:20] LABS: #Monocytes 0.4 10x3/uL (0.0-1.1); %Basophils 0.1 % (0.0-2.0); %Eosinophils 0.4 % (0.0-6.0); %Lymphocytes 19.9 % (18.0-47.0); %Monocytes 5.8 % (0.0-10.0); %Neutrophils 73.7 % (40.0-75.0); Hemoglobin 11.7 g/dL (13.5-17.5); Mean Corpuscular HGB CONC 32.8 g/dL (32.0-36.0); Mean Corpuscular Hemoglobin 28.5 pg (27.0-33.0); Mean Corpuscular Volume 86.9 fl (81.2-95.1); Mean Platelet Volume 10.1 fl (7.4-10.4); Platelet Count 230 10x3/uL (150-450); RBC Distribution Width 14.9 % (11.5-14.5); Red Blood Cell (RBC) Count 4.11 10x6/uL (4.32-5.72); White Blood Cell (WBC) Count 6.7 10x3/uL (3.5-10.5)
[2022-06-23 12:38] LABS: ALT (SGPT) Less than 6 U/L (8-55); AST (SGOT) 16 U/L (5-34); Albumin 4.6 g/dL (3.4-4.8); Alkaline Phosphatase 83 U/L (40-110); Anion Gap 13 mmol/L (10-20); BUN (Urea Nitrogen) 26 mg/dL (8.4-25.7); Bilirubin, Total 0.6 mg/dL (0.2-1.2); CK (CPK) 108 U/L (30-200); Calc. Creatinine Clearance 0 mL/min (70-130); Calcium 9.4 mg/dL (7.8-10.44); Carbon Dioxide 24 mmol/L (23-31); Chloride 108 mmol/L (98-107); Estimated GFR 49; Globulin 2.7 g/dL (2.4-3.5); Glucose 114 mg/dL (83-110); Potassium 4.4 mmol/L (3.5-5.1); Protein, Total 7.3 g/dL (5.8-8.1); Sodium 141 mmol/L (136-145)
[2022-06-23] MEDS ORDERED: Nitroglycerin 2% Ointment 1 INCH/1 GM Packet ONE (14:41)
[2022-06-23] MEDS ORDERED: Iopamidol 370 76% 100 ML VIAL ONE (14:56)
== END 2022-06-23 16:10 | disposition short-term general hospital (02) ==
LOC: CSHERS 11:25
DX: R07.9 Chest pain, unspecified (principal); I25.10 Atherosclerotic heart disease of native coronary artery without angina pectoris; E78.5 Hyperlipidemia, unspecified; Z79.899 Other long term (current) drug therapy; Z79.82 Long term (current) use of aspirin
CPT/HCPCS: 36415; 71275; 74174; 80053; 82550; 83880; 84484; 85025; 86850; 86900; 86901; 93005; 96374; 96375; 96376; J2270; J2405; Q9967